=== PATIENT | male | born 1950 | race Caucasian/White ===

== ENCOUNTER → 2016-06-23 | Outpatient (CLI) | payer OTHER ==
[~2016-06-23] VITALS: Ht 177.8 cm; Wt 127.3 kg
[~2016-06-23] MED LIST: B COMPLETE1 EACH PO; COQ-10100 MG PO; CORDARONE200 MG/TAB PO; LEADER ESSENTIA1 TAB PO; PROBIOTIC1 EAC1 PO; XARELTO20 MG PO
[2016-06-23 17:11] VITALS: BP 134/88
== END ==
LOC: AMSURD 16:35
DX: I48.2 Chronic atrial fibrillation (principal)